=== PATIENT | female | born 1955 | race Hispanic/Latino ===

== ENCOUNTER 2019-04-26 13:07 | Observation (INO) | payer OTHER ==
[2019-04-26] MEDS ORDERED: ATIVAN IV PRN ×2 (14:27)
[2019-04-26] MEDS ORDERED: NACL 0.9% 1000 ML 1,000 ML IV ONE ×2 (14:27→15:40)
[2019-04-26] MEDS ORDERED: ZOFRAN IV ONE (14:28)
--- NOTE | 2019-04-26 14:29 | Emergency Department Report ---
<BRENDAN SALGADO - Last Filed: 04/27/19 00:43> ED General Adult HPI - General Chief complaint: Nausea/Vomiting/Diarrhea Stated complaint: WITHRAWLS Time Seen by Provider: 04/26/19 14:06 - Related Data Home Medications Medication Instructions Recorded Confirmed Last Taken Folic Acid [Folvite] 1 mg PO QDAY 04/26/19 04/26/19 Unknown Losartan [Cozaar] 50 mg PO QDAY 04/26/19 04/26/19 Unknown Mirtazapine [Remeron 15mg TAB] 15 mg PO QHS 04/26/19 04/26/19 Unknown Multivit-Min/Iron/Folic Acid/K 1 each PO DAILY 04/26/19 04/26/19 Unknown [Adults Multivitamin Tablet] Oxazepam [Serax] 15 mg PO BID 04/26/19 04/26/19 Unknown QUEtiapine [SEROquel] 100 mg PO QHS 04/26/19 04/26/19 Unknown Sertraline [Zoloft] 25 mg PO QDAY 04/26/19 04/26/19 Unknown Thiamine [Vitamin B-1] 100 mg PO QDAY 04/26/19 04/26/19 Unknown amLODIPine [Norvasc] 10 mg PO DAILY 04/26/19 04/26/19 Unknown lamoTRIgine [LaMICtal] 25 mg PO QDAY 04/26/19 04/26/19 Unknown Allergies Allergy/AdvReac Type Severity Reaction Status Date / Time ketorolac [From Toradol] AdvReac Unknown Verified 04/26/19 22:42 morphine AdvReac Unknown Verified 04/26/19 22:42 ED Past Medical Hx - Medications Home Medications: Home Medications Medication Instructions Recorded Confirmed Last Taken Type Folic Acid [Folvite] 1 mg PO QDAY 04/26/19 04/26/19 Unknown History Losartan [Cozaar] 50 mg PO QDAY 04/26/19 04/26/19 Unknown History Mirtazapine [Remeron 15mg TAB] 15 mg PO QHS 04/26/19 04/26/19 Unknown History Multivit-Min/Iron/Folic Acid/K 1 each PO DAILY 04/26/19 04/26/19 Unknown History [Adults Multivitamin Tablet] Oxazepam [Serax] 15 mg PO BID 04/26/19 04/26/19 Unknown History QUEtiapine [SEROquel] 100 mg PO QHS 04/26/19 04/26/19 Unknown History Sertraline [Zoloft] 25 mg PO QDAY 04/26/19 04/26/19 Unknown History Thiamine [Vitamin B-1] 100 mg PO QDAY 04/26/19 04/26/19 Unknown History amLODIPine [Norvasc] 10 mg PO DAILY 04/26/19 04/26/19 Unknown History lamoTRIgine [LaMICtal] 25 mg PO QDAY 04/26/19 04/26/19 Unknown History ED Medical Decision Making - Lab Data Result diagrams: 04/26/19 14:58 04/26/19 14:58 - Medical Decision Making Pt received in sign-out from Dr Robertson. Pt states she has had N/V/D for several days. Reports body aches as well. Also sustained a fall a few days a go, has bruising to face. CT Head is negative. CT Abd/ Pelvis negative for any acute pathology. CXR is negative. Pt has elevated WBCs at 15, normal lactic acide, normal temp. Pt hypokalemic at 3.0. Potassium has been replaced. Pt received 2L bolus normal saline in addition to banana bag. Pt had persistent tachycardia into the 110s. EKG showed sinus tachycardia w/ premature beats, no ST elevations, prolonged QT. Due to this tachycardia and a few readings of hypoxia, CTA was obtained to rule out PE. CTA Chest negative for PE. Pt does report that she is a smoker. RN states pt's O2 drops while asleep, so likely sleep apnea with COPD. Pt will be admitted to hospitalist for further ma nagement. ED Disposition Clinical Impression: Gastroenteritis, Hypokalemia, Dehydration Disposition: DC-09 OP ADMIT IP TO THIS HOSP Is pt being admited?: Yes Condition: Stable Time of Disposition: 20:25 <RAMOS ROBERTSON - Last Filed: 04/27/19 06:12> ED General Adult HPI - General Source: patient, EMS (EMS notes not available at time of chart dictation), RN notes reviewed, old records reviewed Mode of arrival: Ambulatory Limitations: Other (patient is a poor historian.) - History of Present Illness Initial comments: This is a 63-year-old female. She reportedly has a history of bipolar disorder. The patient is currently on a 1013 for suspected overdose. The patient is sent to the ER by a local psychiatric facility for evaluation. Apparently, she was a recent overdose of medication, also has a history of depression, anxiety, bipolar, hypertension, question alcohol abuse, and chronic diarrhea. The patient presents to the ER with a complaint of total body pain, weakness, malaise, fatigue, reported chronic diarrhea. She thinks that she fell on her head for 5 days ago. She is not sure about her tetanus vaccination status. She denies focal extremity weakness, numbness. She denies urinary symptoms, although she endorses that her urine is "dark." She states that she is not homicidal or suicidal. She makes no complaint of intentional overdose. She is not sure if she has started any new medicines. As per includes documentation, patient is reportedly allergic to morphine and tramadol. -: Gradual Location: left, right, upper extremity, lower extremity Quality: aching Consistency: constant Improves with: none Worsens with: none ED Review of Systems ROS: Stated complaint: WITHRAWLS Other details as noted in HPI Constitutional: malaise, weakness Eyes: denies: eye discharge ENT: denies: epistaxis Respiratory: denies: cough Cardiovascular: denies: syncope Gastrointestinal: diarrhea Genitourinary: other Musculoskeletal: arthralgia, myalgia Skin: rash, lesions Neurological: weakness Psychiatric: anxiety. denies: homicidal thoughts, suicidal thoughts ED Past Medical Hx - Past Medical History Hx Hypertension: Yes Hx Seizures: Yes Hx Psychiatric Treatment: Yes (bipolar) - Surgical History Additional Surgical History: hysterectomy, cyst to kidney removed, C4-C5 - Social History Smoking Status: Former Smoker Substance Use Type: Alcohol ED Physical Exam - General Limitations: Other (poor historian, somewhat disorganized) General appearance: alert, anxious - Head Head exam: Present: normocephalic, other (facial abrasions and infraorbital ecchymoses noted) - Eye Eye exam: Present: normal appearance, EOMI, other (visual acuity intact to finger counting and color perception at close distance). Absent: nystagmus - ENT ENT exam: Present: mucous membranes dry, normal external ear exam - Neck Neck exam: Present: normal inspection, full ROM. Absent: tenderness, meningismus - Respiratory Respiratory exam: Present: normal lung sounds bilaterally. Absent: respiratory distress - Cardiovascular Cardiovascular Exam: Present: normal rhythm, tachycardia, normal heart sounds. Absent: systolic murmur, diastolic murmur, rubs, gallop - GI/Abdominal GI/Abdominal exam: Present: soft. Absent: distended, tenderness, guarding, rebound, rigid, pulsatile mass - Extremities Exam Extremities exam: Present: full ROM, other (2+ pulses noted in the bilateral upper, lower extremities. There is no long bony tenderness. The pelvis is stable. Muscular compartments are soft. There is no redness, pus, streaking or crepitus noted.). Absent: normal inspection (numerous ecchymosis and abrasions noted, in various stages of healing), pedal edema, joint swelling, calf tenderness - Back Exam Back exam: Absent: tenderness, CVA tenderness (R), CVA tenderness (L), paraspinal tenderness, vertebral tenderness - Neurological Exam Neurological exam: Present: alert, oriented X3, other (Extraocular movements are intact bilaterally. There is no facial droop. The tongue is midline. Patient speaking in full complete sentences. There is no dysphonia. Hearing is grossly intact bilaterally. Shoulder shrug is intact bilaterally. 5/5 strength bilateral upper, lower extremities. Sensation is intact to light touch bilateral upper, lower extremities.). Absent: motor sensory deficit - Psychiatric Psychiatric exam: Present: anxious - Skin Skin exam: Present: warm, intact, normal color, abrasion, ecchymosis. Absent: rash ED Course Vital Signs 04/26/19 04/26/19 04/26/19 13:22 13:30 13:36 Temperature 98.1 F Pulse Rate 110 H 128 H Respiratory 15 18 Rate Blood Pressure 97/59 97/59 97/59 O2 Sat by Pulse 96 95 Oximetry 04/26/19 04/26/19 04/26/19 13:46 14:00 14:16 Temperature Pulse Rate 126 H 122 H 117 H Respiratory 16 18 20 Rate Blood Pressure 96/68 90/57 102/66 O2 Sat by Pulse 94 97 Oximetry 04/26/19 04/26/19 04/26/19 14:30 14:46 15:00 Temperature Pulse Rate 150 H 120 H 133 H Respiratory 13 17 10 L Rate Blood Pressure 106/75 109/59 109/59 O2 Sat by Pulse 99 97 Oximetry 04/26/19 04/26/19 04/26/19 15:16 15:30 15:46 Temperature Pulse Rate 120 H 121 H 103 H Respiratory 16 15 20 Rate Blood Pressure 109/59 119/72 119/72 O2 Sat by Pulse 97 96 95 Oximetry 04/26/19 04/26/19 04/26/19 16:00 16:16 19:00 Temperature Pulse Rate 110 H 116 H 101 H Respiratory 13 22 24 Rate Blood Pressure 136/77 117/69 119/74 O2 Sat by Pulse 98 92 Oximetry 04/26/19 04/26/19 04/26/19 19:30 19:36 20:00 Temperature Pulse Rate 105 H 109 H Respiratory 28 H 16 14 Rate Blood Pressure 131/77 139/108 O2 Sat by Pulse 89 97 99 Oximetry 04/26/19 04/26/19 04/26/19 20:30 21:20 21:31 Temperature Pulse Rate 112 H 123 H Respiratory 13 15 Rate Blood Pressure 122/81 128/74 113/48 O2 Sat by Pulse 100 96 93 Oximetry 04/26/19 04/26/19 04/26/19 22:01 22:31 23:00 Temperature Pulse Rate 125 H 105 H 149 H Respiratory 10 L 12 10 L Rate Blood Pressure 115/70 117/66 119/78 O2 Sat by Pulse 93 99 94 Oximetry 04/26/19 04/27/19 04/27/19 23:30 00:30 01:00 Temperature Pulse Rate 161 H 110 H Respiratory 19 13 21 Rate Blood Pressure 126/82 113/72 111/72 O2 Sat by Pulse 96 94 93 Oximetry - Reevaluation(s) Reevaluation #1: 04/26/19 15:07 Differential diagnosis, including but not limited to: Colitis, enteritis, alcohol dependence, alcohol withdrawal, dehydration, pneumonia, urinary tract infection, intracranial injury, dehydration Assessment and plan: 63-year-old female with a complaint of total body pain, malaise and weakness. She is afebrile and tachycardic. She is sober at this time. There is no midline cervical spine tenderness at this time. The patient has a nonfocal motor examination, and she is able to cooperate with her history and physical. We will check basic laboratory studies, urinalysis, EKG, x-ray of the chest, CT scan of the brain, CT scan abdomen pelvis, and given a tetanus vaccination. We will reassess after data points have resulted. Reevaluation #2: 04/26/19 15:39 Care will be transferred to the oncoming ER physician, Dr. Salgado, to follow-up on laboratory studies, repeat vital signs, and CT scan of the brain, abdomen/p robyn. Patient may require additional doses of IV fluids, and benzodiazepines to control symptoms. ED Medical Decision Making - Lab Data Result diagrams: 04/26/19 14:58 04/26/19 14:58 Vital Signs 04/26/19 13:36 Temperature 98.1 F Pulse Rate 128 H Respiratory 18 Rate Blood Pressure 97/59 O2 Sat by Pulse 95 Oximetry Lab Results 04/26/19 Range/Units 14:58 WBC 15.7 H (4.5-11.0) K/mm3 RBC 4.69 (3.65-5.03) M/mm3 Hgb 15.2 H (10.1-14.3) gm/dl Hct 44.3 H (30.3-42.9) % MCV 94 (79-97) fl MCH 33 H (28-32) pg MCHC 35 H (30-34) % RDW 19.0 H (13.2-15.2) % Lymph % (Auto) 23.0 (13.4-35.0) % [place] % (Auto) 8.0 H (0.0-7.3) % Eos % (Auto) 0.2 (0.0-4.3) % Baso % (Auto) 1.0 (0.0-1.8) % Lymph # 3.6 (1.2-5.4) K/mm3 [place] # 1.2 H (0.0-0.8) K/mm3 Eos # 0.0 (0.0-0.4) K/mm3 Baso # 0.2 H (0.0-0.1) K/mm3 Seg Neutrophils % 67.8 (40.0-70.0) % Seg Neutrophils # 10.7 H (1.8-7.7) K/mm3 - EKG Data -: EKG Interpreted by Ks - EKG Data When compared to previous EKG there are: previous EKG unavailable 04/26/19 15:09 There is no prior EKG available for comparison. The EKG shows a sinus tachy cardia, 160 bpm, normal axis, QTC prolonged, motion artifact, poor progression, the EKG is abnormal, there is no prior for comparison, the EKG is not consistent with ST elevation myocardial infarction. - Radiology Data Radiology results: image reviewed interpreted by me: X-ray of the chest is negative for acute disease. Critical care attestation.: If time is entered above; I have spent that time in minutes in the direct care of this critically ill patient, excluding procedure time. ED Disposition Is pt being admited?: Yes
[2019-04-26] MEDS ORDERED: ATIVAN IV STA (14:38)
[2019-04-26 15:07] LABS: Basophils # (Auto) 0.2 K/mm3 (0.0-0.1); Eosinophils % (Auto) 0.2 % (0.0-4.3); Hematocrit 44.3 % (30.3-42.9); Hemoglobin 15.2 gm/dl (10.1-14.3); Lymphocytes # (Auto) 3.6 K/mm3 (1.2-5.4); Mean Corpuscular HGB Conc 35 % (30-34); Mean Corpuscular Volume 94 fl (79-97); Monocytes # (Auto) 1.2 K/mm3 (0.0-0.8); Red Blood Count 4.69 M/mm3 (3.65-5.03)
[2019-04-26] MEDS ORDERED: BOOSTRIX IM ONE (15:07)
[2019-04-26 15:19] LABS: Platelet Count 435 K/mm3 (140-440)
[2019-04-26 15:24] LABS: Albumin 3.9 g/dL (3.9-5); Calcium 9.7 mg/dL (8.4-10.2)
[2019-04-26] MEDS ORDERED: VITAMIN B-1 100 MG, FOLVITE 1 MG, INFUVITE 10 ML in NACL 0.9% 1000 ML 1,000 ML IV ONE (15:27)
[2019-04-26] MEDS ORDERED: K-DUR PO ONE (15:29)
[2019-04-26 15:43] LABS: INR 1.06 (0.87-1.13)
[2019-04-26 15:44] LABS: Partial Thromboplastin Time 23.2 Sec. (24.2-36.6)
--- NOTE | 2019-04-26 15:49 | XRay Report ---
CHEST 1 VIEW INDICATION / CLINICAL INFORMATION: Chest pain with dyspnea. COMPARISON: None available. FINDINGS: SUPPORT DEVICES: None. HEART / MEDIASTINUM: No significant abnormality. LUNGS / PLEURA: No significant pulmonary or pleural abnormality. No pneumothorax. ADDITIONAL FINDINGS: No significant additional findings. IMPRESSION: 1. No acute findings. Signer Name: Sunil Ray MD Signed: 04/26/2019 3:45 PM Workstation Name: [id number]
[2019-04-26] MEDS ORDERED: REGLAN IV ONE (16:01)
[2019-04-26 16:39] LABS: Bilirubin,Urine NEG (Negative); Blood,Urine NEG (Negative); Color,Urine Amber (Yellow); Protein,Urine <15 mg/dL mg/dL (Negative); Urobilinogen,Urine < 2.0 mg/dL (<2.0)
[2019-04-26 17:02] LABS: Amphetamine Screen,Urine PRESUMPTIVE NEGATIVE; Cannabinoid Screen,Urine PRESUMPTIVE NEGATIVE; Cocaine Screen,Urine PRESUMPTIVE NEGATIVE; Methadone Screen,Urine PRESUMPTIVE NEGATIVE; Opiate Screen,Urine PRESUMPTIVE NEGATIVE
[2019-04-26 17:14] LABS: Benzodiazepines Screen,Urine PRESUMPTIVE POSITIVE
--- NOTE | 2019-04-26 17:14 | Cat Scan Report ---
CT head/brain wo con INDICATION: Fall, facial abrasion. TECHNIQUE: Routine CT head without contrast. All CT scans at this location are performed using CT dose reduction for ALARA by means of automated exposure control. COMPARISON: None. FINDINGS: BRAIN / INTRACRANIAL CONTENTS: No acute hemorrhage, brain edema, mass effect, or hydrocephalus. Naina l linder-white differentiation. No chronic infarct or focal atrophy. Normal brain volume and ventricula r/sulcal size for age. CALVARIUM/SKULL BASE/CRANIOCERVICAL JUNCTION: No evidence of fracture. ORBITS: No significant abnormality of visualized orbits. SINUSES / MASTOIDS: No significant abnormality of visualized sinuses and mastoid air cells. ADDITIONAL FINDINGS: None. IMPRESSION: 1. No acute post-traumatic intracranial abnormality. Signer Name: Mac Duran MD Signed: 04/26/2019 5:10 PM Workstation Name: [id number]
--- NOTE | 2019-04-26 17:36 | Cat Scan Report ---
CT ABDOMEN AND PELVIS WITHOUT CONTRAST INDICATION: hx of fall facial abrasion n/v weak. TECHNIQUE: Axial CT images were obtained through the abdomen and pelvis without IV contrast. All CT scans at [facility] are performed using CT dose reduction for ALARA by means of automated exposure control. COMPARISON: None available. FINDINGS: LOWER CHEST: No significant abnormality. LIVER: 2.2 cm indeterminate hypodense lesion within the caudate lobe of liver. 1.1 cm hypodense lesio n within the lateral hepatic segment. No perihepatic fluid. Caudate lobe is also somewhat nodular in morphology which may be seen with mild early cirrhosis. GALLBLADDER: No significant abnormality. BILE DUCTS: No significant abnormality. PANCREAS: No significant abnormality. SPLEEN: No significant abnormality. ADRENALS: No significant abnormality. RIGHT KIDNEY and URETER: No significant abnormality. LEFT KIDNEY and URETER: No significant abnormality. STOMACH and SMALL BOWEL: No significant abnormality. COLON: No significant abnormality. APPENDIX: Normal PERITONEUM: No free fluid. No free air. No fluid collection. LYMPH NODES: No significant adenopathy. AORTA and ARTERIES: Extensive vascular calcifications within the abdominal aorta and both iliac arter ies IVC and VEINS: No significant abnormality. URINARY BLADDER: No significant abnormality. REPRODUCTIVE ORGANS: Uterus surgically absent ADDITIONAL FINDINGS: None. SKELETAL SYSTEM: Osteopenia with old compression fracture of L1 superior endplate with 50% loss of ve rtebral body height IMPRESSION: 1. 2 indeterminate hypodense liver lesions with probable mild cirrhosis of liver. Recommend CT abdome n with contrast with arterial and portal venous phase images to confirm presence or absence of julianne ioma or focal fatty infiltration. The lesions do not have the appearance of lacerations since there i s no perihepatic fluid or other adjacent rib fracture or traumatic injury. 2. Old L1 compression fracture Signer Name: Alphonse Anaya MD Signed: 04/26/2019 5:31 PM Workstation Name: [id number]
[2019-04-26] MEDS: KCL 10MEQ/100ML 10 MEQ/100 ML BAG IV SCH ×3 (18:13→21:46)
--- NOTE | 2019-04-26 21:43 | Cat Scan Report ---
CTA CHEST WITH IV CONTRAST INDICATION: tachycardic, hypoxic. TECHNIQUE: Axial CT images were obtained through the chest after injection of 100 mL IV contrast. 3 plane MIP re constructions were produced. All CT scans at this location are performed using CT dose reduction for ALARA by means of automated exposure control. COMPARISON: None available. FINDINGS: PULMONARY ARTERIES: No pulmonary emboli. AORTA AND ARTERIES: No acute abnormality. MEDIASTINUM: No mass, lymphadenopathy or other significant abnormality. The heart is normal in size w ithout a pericardial effusion. The trachea and main bronchi are patent and normal in caliber. LUNGS: No suspicious consolidation, nodule or mass. No pneumothorax or pleural effusion. ADDITIONAL FINDINGS: None. UPPER ABDOMEN: No acute findings. BONES: No significant osseous abnormality. IMPRESSION: 1. No CT evidence for pulmonary embolism. 2. No acute findings. Signer Name: Sunil Ray MD Signed: 04/26/2019 9:39 PM Workstation Name: [id number]
[2019-04-26] MEDS ORDERED: KCL 10MEQ/100ML 10 MEQ/100 ML BAG IV ONE (22:36)
[2019-04-27] MEDS ORDERED: KCL 10MEQ/100ML 10 MEQ/100 ML BAG IV ONE (00:16)
[2019-04-27] MEDS ORDERED: ATIVAN ONE (00:25)
[2019-04-27] MEDS: ATIVAN IV PRN ×5 (00:32→23:06)
[2019-04-27] MEDS: ZOFRAN IV PRN ×3 (03:27→23:06)
--- NOTE | 2019-04-27 05:12 | History and Physical Report ---
CHIEF COMPLAINT: Nausea, vomiting and diarrhea. Other complaint includes weakness. HISTORY OF PRESENT ILLNESS: The patient is a 63-year-old female transferred from a nearby psychiatric facility because of complaint of weakness, nausea and vomiting. The patient was sent to the psych facility because of suspected drug overdose and also because of history of bipolar disorder, depression and anxiety and the patient was sent over after she started having nausea, vomiting with diarrhea. The patient also states she fell down about 5 days ago and hit her head on the ground. There was no history of chest pain, shortness of breath, fever or chills. PAST MEDICAL HISTORY: Pertinent for hypertension, seizure disorder, bipolar disorder, anxiety disorder, depression. PAST SURGICAL HISTORY: Hysterectomy, cyst removal from the kidney. FAMILY HISTORY: Noncontributory. SOCIAL HISTORY: The patient drinks alcohol. The patient is a former cigarette smoker, but does not smoke currently. MEDICATIONS: The patient is on the following medications: 1. Folic acid 1 mg by mouth daily. 2. Losartan 50 mg by mouth daily. 3. Temazepam 15 mg by mouth at bedtime. 4. Adult multivitamin tablets 1 by mouth daily. 5. Oxazepam or Serax 15 mg by mouth twice daily. 6. Seroquel 100 mg by mouth at bedtime. 7. Zoloft 25 mg by mouth daily. 8. Vitamin B1 100 mg by mouth daily. 9. Amlodipine 10 mg by mouth daily. 10. Lamotrigine 25 mg by mouth daily. ALLERGIES: THE PATIENT IS ALLERGIC TO KETOROLAC, MORPHINE. REVIEW OF SYSTEMS: CONSTITUTIONAL: There is no fever, no chills, no diaphoresis. HEENT: There is no headache or sore throat. CARDIOVASCULAR SYSTEM: There is no chest pain or orthopnea. RESPIRATORY SYSTEM: There is no shortness of breath or cough. GASTROINTESTINAL SYSTEM: Nausea, vomiting and diarrhea present. Abdominal discomfort noted. No constipation. NEUROLOGICAL SYSTEM: There is no numbness, no dizziness, no altered mental status. MUSCULOSKELETAL SYSTEM: There is no joint pain or swelling. DERMATOLOGICAL SYSTEM: There is no skin rash or itching. GENITOURINARY SYSTEM: There is no dysuria, hematuria, or flank pain. Rest of system review is normal. PHYSICAL EXAMINATION: GENERAL: At the time of exam, the patient was found to be alert, oriented to person, place and not in acute distress. VITAL SIGNS: At the initial time of presentation showed temperature of 98.1 degrees Fahrenheit, pulse of 128, respirations 18, blood pressure 97/59, O2 sat of 95% on room air. HEENT: Showed pupils to be equal, round, reactive to light and accommodating. Extraocular muscles are intact. NECK: Supple with no JVD or carotid bruit. CARDIOVASCULAR SYSTEM: Showed normal first and second heart sounds with no gallops or murmurs. RESPIRATORY SYSTEM: Showed good air entry on both sides of the lungs with no abnormal breath sounds. GASTROINTESTINAL SYSTEM: Show abdomen to be full, soft, nontender with no organomegaly or rigidity. NEUROLOGIC: Shows no focal deficit. MUSCULOSKELETAL SYSTEM: Show no joint swelling or tenderness. DERMATOLOGICAL SKIN: Showed no skin rash. GENITOURINARY SYSTEM: Showed no costovertebral angle tenderness. PERTINENT LABORATORY AND IMAGING STUDIES: The patient had chest x-ray done that shows no acute cardiopulmonary lesion and the patient had CT of the head without contrast done that shows no acute posttraumatic intracranial abnormality. The patient has CT of the abdomen and pelvis done and this shows indeterminate hypodense liver lesions with possible mild cirrhosis of the liver and the radiologist recommended CT of the abdomen with contrast with arterial and portal venous phase images to confirm the presence or absence of hemangioma of focal fatty infiltration. There is also finding of an old first lumbar compression fracture. The patient also has CT angiogram of the chest done and this shows no evidence of pulmonary embolism and no acute findings. Lab results, the patient has CBC done with elevated white count of 15,700 and elevated hemoglobin of 15.2 with high hematocrit of 44.3 and normal platelet count, with unremarkable CBC differential. The patient's coagulation studies came back normal. The patient's chemistry show low sodium level of 135 with low chloride level of 88.1 and low potassium level of 3.0. The patient's BUN level was elevated with a value of 24 with normal creatinine level and low estimated GFR of 50. The patient's lactic acid level came back normal and rest of the chemistry was unremarkable. The patient's urinalysis show elevated urine WBC of 11 with normal urine, leukocyte esterase, negative urine nitrite and no bacteria seen. The patient's toxicology screen is positive for benzodiazepines and the patient's alcohol level was unremarkable. DIAGNOSES: 1. Acute gastroenteritis. 2. Hypokalemia. 3. Dehydration. 4. Possible liver cirrhosis. PLAN OF CARE: 1. The patient will be admitted to medical floor. 2. The patient will continue the CIWA protocol put in by the emergency room. 3. The patient will be on IV normal saline running at 125 mL an hour. 4. The patient will be on IV Zofran 4 mg every 8 hours as needed for nausea and vomiting and will be on Tylenol 650 mg by mouth every 4 hours for fever and headache. 5. The patient will have IV potassium chloride 10 mEq in 100 mL of normal saline over one hour and will have basic metabolic panel checked in the morning after potassium replacement. 6. The patient will continue the IV normal saline with thiamine, multivitamin, folic acid, magnesium sulfate as banana bag that was started in the emergency room and will continue normal saline subsequently when the banana bag is done. 7. The patient will have gastroenterology consult with Paty aRi because of possible liver cirrhosis found on CAT scan of the abdomen and pelvis. 8. The patient's home medications will be started as shown in the medication reconciliation section. JOB# [id number] OCN/NTS
[2019-04-27] MEDS: NACL 0.9% 1000 ML 1,000 ML IV SCH ×2 (05:18→11:47)
[2019-04-27 09:28] LABS: BUN/Creatinine Ratio 17; Blood Urea Nitrogen 15 mg/dL (7-17); Calcium 8.6 mg/dL (8.4-10.2); Hemolysis Index 1
[2019-04-27] MEDS: NORVASC PO SCH (09:56)
[2019-04-27] MEDS: THERAGRAN-M Tab PO SCH (09:56)
[2019-04-27] MEDS: FOLVITE PO SCH (09:56)
[2019-04-27] MEDS: COZAAR PO SCH (09:57)
[2019-04-27] MEDS: HEPARIN SUB-Q SCH ×2 (09:57→22:06)
[2019-04-27] MEDS ORDERED: [UNRECOGNIZED DRUG - OTHER] PO SCH (10:00)
[2019-04-27] MEDS ORDERED: MULTIVIT MIN PO SCH (10:00)
[2019-04-27] MEDS: ZOLOFT PO SCH (10:00)
[2019-04-27] MEDS: LaMICtal PO SCH (10:00)
[2019-04-27] MEDS ORDERED: FOLIC ACID PO SCH (10:00)
[2019-04-27] MEDS ORDERED: IRON PO SCH (10:00)
--- NOTE | 2019-04-27 13:19 | Progress Note ---
Assessment and Plan Acute gastroenteritis Hypokalemia Dehydration due to nausea and vomiting hepatic nodule with new diagnosis of hepatic cirrhosis Suspected drug overdose Alcohol abuse with possible withdrawal - Admitted to [facility] - Started on clear liquid diet, GI consulted, cont PPI/carafate/reglan, IV fluid, - consult psych, DVt Px - monitor BMP, replete electrolytes as needed - psych consult Brief History: 63-year-old white female with a history of hypertension, seizure disorder, transferred from a nearby psychiatric facility because of complaints of weakness nausea and vomiting. Patient was admitted to the psych facility because of suspected drug overdose, bipolar disorder with depression or anxiety. Radiological data: Head CT, no acute process Chest x-ray, no infiltrates Chest CTA, NO PE Abdomen pelvis CT: 1. 2 indeterminate hypodense liver lesions with probable mild cirrhosis of li reji. Recommend CT abdomen with contrast with arterial and portal venous phase images to confirm presence or absence of hemangioma or focal fatty infiltration. The lesions do not have the appearance of lacerations since there is no perihepatic fluid or other adjacent rib fracture or traumatic injury. 2. Old L1 compression fracture Hospitalist Physical exam: GENERAL: elderly WF lying on bed appeared to be in mild discomfort. HEENT: Normocephalic. Atraumatic. No conjunctival congestion or icterus. Patient has moist mucous membranes. NECK: Supple. Trachea midline. CHEST/LUNGS: Clear to auscultated bilaterally, breathing nonlabored. No wheezes crackles or rhonchi. HEART/CARDIOVASCULAR: Regular in rate and rhythm. S1 and S2 positive. ABDOMEN: Abdomen is soft, nontender. Patient has normal bowel sounds. SKIN: There is no rash. Warm and dry. NEURO: No focal motor deficit. Follows command. MUSCULOSKELETAL: No joint effusion or tenderness. EXTRIMITY: No edema, no cyanosis or clubbing. PSYCH: Cooperative. Subjective Date of service: 04/27/19 Interval history: Patient seen and examined c/o N/V, unable to tolerate po Objective - Constitutional Vitals: Vital Signs - 12hr 04/27/19 04/27/19 04/27/19 01:20 05:22 05:47 Temperature 99.8 F H 99.0 F Pulse Rate 102 H 92 H Respiratory 18 16 Rate Blood Pressure 131/93 120/74 Blood Pressure 128/58 [Left] O2 Sat by Pulse 94 94 Oximetry - Labs CBC & Chem 7: 04/29/19 05:30 04/29/19 05:30 Labs: Abnormal lab results 04/26/19 04/26/19 04/26/19 Range/Units 14:58 14:58 14:58 WBC 15.7 H (4.5-11.0) K/mm3 Hgb 15.2 H (10.1-14.3) gm/dl Hct 44.3 H (30.3-42.9) % MCH 33 H (28-32) pg MCHC 35 H (30-34) % RDW 19.0 H (13.2-15.2) % [place] % (Auto) 8.0 H (0.0-7.3) % [place] # 1.2 H (0.0-0.8) K/mm3 Baso # 0.2 H (0.0-0.1) K/mm3 Seg Neutrophils # 10.7 H (1.8-7.7) K/mm3 APTT 23.2 L (24.2-36.6) Sec. Sodium 135 L (137-145) mmol/L Potassium 3.0 L (3.6-5.0) mmol/L Chloride 88.1 L (98-107) mmol/L BUN 24 H (7-17) mg/dL Glucose 105 H (65-100) mg/dL Alkaline Phosphatase 144 H (35-129) units/L Total Protein 8.4 H (6.3-8.2) g/dL Urine WBC (Auto) (0.0-6.0) /HPF Salicylates (2.8-20.0) mg/dL Acetaminophen (10.0-30.0) ug/mL 04/26/19 04/26/19 04/26/19 Range/Units 14:58 14:58 15:46 WBC (4.5-11.0) K/mm3 Hgb (10.1-14.3) gm/dl Hct (30.3-42.9) % MCH (28-32) pg MCHC (30-34) % RDW (13.2-15.2) % [place] % (Auto) (0.0-7.3) % [place] # (0.0-0.8) K/mm3 Baso # (0.0-0.1) K/mm3 Seg Neutrophils # (1.8-7.7) K/mm3 APTT (24.2-36.6) Sec. Sodium (137-145) mmol/L Potassium (3.6-5.0) mmol/L Chloride (98-107) mmol/L BUN (7-17) mg/dL Glucose (65-100) mg/dL Alkaline Phosphatase (35-129) units/L Total Protein (6.3-8.2) g/dL Urine WBC (Auto) 11.0 H (0.0-6.0) /HPF Salicylates < 0.3 L (2.8-20.0) mg/dL Acetaminophen < 5.0 L (10.0-30.0) ug/mL 04/27/19 Range/Units 08:29 WBC (4.5-11.0) K/mm3 Hgb (10.1-14.3) gm/dl Hct (30.3-42.9) % MCH (28-32) pg MCHC (30-34) % RDW (13.2-15.2) % [place] % (Auto) (0.0-7.3) % [place] # (0.0-0.8) K/mm3 Baso # (0.0-0.1) K/mm3 Seg Neutrophils # (1.8-7.7) K/mm3 APTT (24.2-36.6) Sec. Sodium (137-145) mmol/L Potassium 3.5 L (3.6-5.0) mmol/L Chloride 96.9 L (98-107) mmol/L BUN (7-17) mg/dL Glucose (65-100) mg/dL Alkaline Phosphatase (35-129) units/L Total Protein (6.3-8.2) g/dL Urine WBC (Auto) (0.0-6.0) /HPF Salicylates (2.8-20.0) mg/dL Acetaminophen (10.0-30.0) ug/mL
[2019-04-27] MEDS ORDERED: HALDOL IM PRN (18:13)
--- NOTE | 2019-04-27 19:07 | Gastroenterology Consultation ---
History of Present Illness - Reason for Consult Consult date: 04/27/19 cirrhosis Requesting physician: AKIN GR - History of Present Illness This is a 63 yo female with pmh of HTN and seizure transferred from psychiatric facility due to nausea/vomiting. Patient was admitted at psych facility because of suspected drug overdose, bipolar disorder. patient reports having nausea/vomiting for the past 4-5 days. No blood in the emesis. No abdominal pain but sick feeling in her stomach. CT a/p without contrast showed small liver lesion and cirrhosis. Patient denies any prior h/o liver disease but states she used to drink a lot of alcohol regularly but quit 3 weeks ago. Family hx of cirrhosis in her mother and brother. Medication list reviewed. Past History Past Medical History: hypertension Past Surgical History: No surgical history Social history: alcohol abuse Family history: other (liver disease) Medications and Allergies Allergies Allergy/AdvReac Type Severity Reaction Status Date / Time ketorolac [From Toradol] AdvReac Unknown Verified 04/26/19 22:42 morphine AdvReac Unknown Verified 04/26/19 22:42 Home Medications Medication Instructions Recorded Confirmed Last Taken Type Folic Acid [Folvite] 1 mg PO QDAY 04/26/19 04/26/19 Unknown History Losartan [Cozaar] 50 mg PO QDAY 04/26/19 04/26/19 Unknown History Mirtazapine [Remeron 15mg TAB] 15 mg PO QHS 04/26/19 04/26/19 Unknown History Multivit-Min/Iron/Folic Acid/K 1 each PO DAILY 04/26/19 04/26/19 Unknown History [Adults Multivitamin Tablet] Oxazepam [Serax] 15 mg PO BID 04/26/19 04/26/19 Unknown History QUEtiapine [SEROquel] 100 mg PO QHS 04/26/19 04/26/19 Unknown History Sertraline [Zoloft] 25 mg PO QDAY 04/26/19 04/26/19 Unknown History Thiamine [Vitamin B-1] 100 mg PO QDAY 04/26/19 04/26/19 Unknown History amLODIPine [Norvasc] 10 mg PO DAILY 04/26/19 04/26/19 Unknown History lamoTRIgine [LaMICtal] 25 mg PO QDAY 04/26/19 04/26/19 Unknown History Active Meds: Active Medications Amlodipine Besylate (Norvasc) 10 mg PO DAILY [facility] Last Admin: 04/27/19 09:56 Dose: 10 mg Documented by: Folic Acid (Folvite) 1 mg PO QDAY [facility] Last Admin: 04/27/19 09:56 Dose: 1 mg Documented by: Haloperidol Lactate (Haldol) 5 mg IM Q6H PRN PRN Reason: Agitation Heparin Sodium (Porcine) (Heparin) 5,000 unit SUB-Q Q12HR [facility] Last Admin: 04/27/19 09:57 Dose: 5,000 unit Documented by: Sodium Chloride (Nacl 0.9% 1000 Ml) 1,000 mls @ 125 mls/hr IV DIRECT [facility] Last Admin: 04/27/19 11:47 Dose: 125 mls/hr Documented by: Lamotrigine (Lamictal) 25 mg PO QDAY [facility] Last Admin: 04/27/19 10:00 Dose: 25 mg Documented by: Lorazepam (Ativan) 2 mg IV Q1HR PRN PRN Reason: CIWA-Ar 8-15 Last Admin: 04/27/19 18:38 Dose: 2 mg Documented by: Lorazepam (Ativan) 4 mg IV Q1HR PRN PRN Reason: CIWA-Ar 16-25 Lorazepam (Ativan) 4 mg IV Q15MIN PRN PRN Reason: CIWA-Ar >25 Losartan Potassium (Cozaar) 50 mg PO QDAY [facility] Last Admin: 04/27/19 09:57 Dose: 50 mg Documented by: Mirtazapine (Remeron) 15 mg PO QHS [facility] Multivitamins/Minerals (Theragran-M Tab) 1 each PO QDAY [facility] Last Admin: 04/27/19 09:56 Dose: 1 each Documented by: Ondansetron HCl (Zofran) 4 mg IV Q8H PRN PRN Reason: Nausea And Vomiting Last Admin: 04/27/19 11:45 Dose: 4 mg Documented by: Quetiapine Fumarate (Seroquel) 100 mg PO QHS [facility] Sertraline HCl (Zoloft) 25 mg PO QDAY [facility] Last Admin: 04/27/19 10:00 Dose: 25 mg Documented by: Review of Systems - Review of Systems All systems: negative Constitutional: fatigue Respiratory: cough Gastrointestinal: nausea, vomiting Psychiatric: anxiety Exam - Constitutional Vital Signs: Temp Pulse Resp BP Pulse Ox 99.0 F 92 H 16 120/74 94 04/27/19 05:47 04/27/19 05:47 04/27/19 05:47 04/27/19 05:47 04/27/19 05:47 General appearance: no acute distress - EENT Eyes: EOM intact ENT: hearing intact - Neck Neck: supple - Respiratory Respiratory effort: normal Respiratory: bilateral: CTA - Cardiovascular Rhythm: regular Heart Sounds: Present: S1 & S2 - Gastrointestinal General gastrointestinal: Present: soft, non-tender, non-distended, normal bowel sounds - Integumentary Integumentary: Present: clear, warm - Neurologic Neurological: alert and oriented x3 - Labs CBC & Chem 7: 04/26/19 14:58 04/27/19 08:29 Lab Results: Laboratory Results - last 24 hr 04/26/19 04/27/19 22:27 08:29 Sodium 138 Potassium 3.5 L Chloride 96.9 L Carbon Dioxide 28 Anion Gap 17 BUN 15 Creatinine 0.9 Estimated GFR > 60 BUN/Creatinine Ratio 17 Glucose 98 Lactic Acid 1.50 Calcium 8.6 - Imaging CT Scan: report reviewed Assessment and Plan 63-year-old white female with a history of hypertension, seizure disorder, transferred from a nearby psychiatric facility because of complaints of weakness nausea and vomiting. Patient was admitted to the psych facility because of suspected drug overdose, bipolar disorder with depression or anxiety. # Cirrhosis - new diagnosis. - likely 2/2 alcohol. - mild elevation in alk phos but otherwise normal AST/ALT. normal platelets and INR at 1 - CT with 2.2 cm hypodense lesion but indeterminate on noncontrast imaging. Rec: - check viral hepatitis panel. - may need repeat imaging with IV contrast for liver lesion (can be followed up as outpatient but may need as inpatient if unreliable follow up). - PPI and antiemetics. - psych consult. - monitor for signs of withdrawal. - Patient Problems (1) Gastroenteritis Current Visit: Yes Status: Acute
[2019-04-27] MEDS: REMERON PO SCH (22:05)
--- NOTE | 2019-04-28 00:14 | Event Note ---
Date: 04/28/19 pt was going to commode and apparently fell into bath tube. She was found sitting up in bath tub by sitter. Post fall assessment completed, no signs of heaf trauma noted. Will order CT head.
--- NOTE | 2019-04-28 01:52 | Cat Scan Report ---
CT HEAD WITHOUT CONTRAST INDICATION / CLINICAL INFORMATION: MAIN: s/p fall. AMS.. TECHNIQUE: All CT scans at this location are performed using CT dose reduction for ALARA by means of automated e xposure control. COMPARISON: Head CT 04/26/2019 FINDINGS: HEMORRHAGE: None. EXTRA-AXIAL SPACES: Normal in size and morphology for the patient's age. VENTRICULAR SYSTEM: Normal in size and morphology for the patient's age. CEREBRAL PARENCHYMA: No significant abnormality. No acute territorial infarct. MIDLINE SHIFT OR HERNIATION: None. CEREBELLUM / BRAINSTEM: No significant abnormality. ORBITS: Normal as visualized. SOFT TISSUES of HEAD: No significant abnormality. CALVARIUM: No significant abnormality. PARANASAL SINUSES / MASTOID AIR CELLS: Acute mildly displaced fractures of both lateral nasal bones, unchanged ADDITIONAL FINDINGS: None. IMPRESSION: 1. No acute intracranial abnormality. 2. Acute mildly displaced fractures of both lateral nasal bones, unchanged but not mentioned on previ ous study Signer Name: Alphonse Anaya MD Signed: 04/28/2019 1:48 AM Workstation Name: [email or web address]
[2019-04-28] MEDS: NORVASC PO SCH (09:44)
[2019-04-28] MEDS: THERAGRAN-M Tab PO SCH (09:44)
[2019-04-28] MEDS: FOLVITE PO SCH (09:44)
[2019-04-28] MEDS: HEPARIN SUB-Q SCH ×2 (09:45→22:37)
[2019-04-28] MEDS: LaMICtal PO SCH (09:45)
[2019-04-28] MEDS: ZOLOFT PO SCH (09:45)
[2019-04-28] MEDS: COZAAR PO SCH (09:45)
[2019-04-28] MEDS: VITAMIN B-1 PO SCH (11:00)
--- NOTE | 2019-04-28 11:53 | Progress Note ---
Assessment and Plan Acute gastroenteritis Hypokalemia Dehydration due to nausea and vomiting hepatic nodule with new diagnosis of hepatic cirrhosis Suspected drug overdose s/p fall - CT head negative - Admitted to [facility] -advance diet as tolerated, GI consulted - no plan for EGD - cont PPI/carafate/reglan, IV fluid, - consulted psych - follow recommendation, DVt Px - monitor BMP, replete electrolytes as needed - PT eval Brief History: 63-year-old white female with a history of hypertension, seizure disorder, transferred from a nearby psychiatric facility because of complaints of weakness nausea and vomiting. Patient was admitted to the psych facility because of suspected drug overdose, bipolar disorder with depression or anxiety. Radiological data: Head CT, no acute process Chest x-ray, no infiltrates Chest CTA, NO PE Abdomen pelvis CT: 1. 2 indeterminate hypodense liver lesions with probable mild cirrhosis of liver. Recommend CT abdomen with contrast with arterial and portal venous phase images to confirm presence or absence of hemangioma or focal fatty infiltration. The lesions do not have the appearance of lacerations since there is no perihepatic fluid or other adjacent rib fracture or traumatic injury. 2. Old L1 compression fracture Hospitalist Physical exam: GENERAL: elderly WF lying on bed appeared to be in no discomfort. HEENT: Normocephalic. Atraumatic. No conjunctival congestion or icterus. Patient has moist mucous membranes. NECK: Supple. Trachea midline. CHEST/LUNGS: Clear to auscultated bilaterally, breathing nonlabored. No wheezes crackles or rhonchi. HEART/CARDIOVASCULAR: Regular in rate and rhythm. S1 and S2 positive. ABDOMEN: Abdomen is soft, nontender. Patient has normal bowel sounds. SKIN: There is no rash. Warm and dry. NEURO: No focal motor deficit. Follows command. MUSCULOSKELETAL: No joint effusion or tenderness. EXTRIMITY: No edema, no cyanosis or clubbing. PSYCH: Cooperative. Subjective Date of service: 04/28/19 Interval history: Patient seen and examined N/V improved, had a fall last night advance diet started Objective - Constitutional Vitals: Vital Signs - 12hr 04/28/19 04/28/19 04/28/19 00:02 00:05 04:56 Temperature 99.5 F 98.1 F Pulse Rate 114 H 135 H Respiratory 16 20 Rate Blood Pressure 115/66 134/68 O2 Sat by Pulse 95 93 Oximetry 04/28/19 05:03 Temperature Pulse Rate 107 H Respiratory Rate Blood Pressure O2 Sat by Pulse Oximetry - Labs CBC & Chem 7: 04/29/19 05:30 04/29/19 05:30
[2019-04-28] MEDS ORDERED: NEXIUM 20 MG PO SCH (12:15)
[2019-04-28] MEDS: NON-FORMULARY PO SCH (12:36)
[2019-04-28] MEDS ORDERED: PROTONIX PO SCH (14:00)
--- NOTE | 2019-04-28 14:41 | Gastroenterology Progress Note ---
Assessment and Plan 63-year-old white female with a history of hypertension, seizure disorder, transferred from a nearby psychiatric facility because of complaints of weakness nausea and vomiting. Patient was admitted to the psych facility because of suspected drug overdose, bipolar disorder with depression or anxiety. # Cirrhosis - new diagnosis. - likely 2/2 alcohol. - mild elevation in alk phos but otherwise normal AST/ALT. normal platelets and INR at 1 - CT with 2.2 cm hypodense lesion but indeterminate on noncontrast imaging. - no new labs today although orders in place. (? patient refusal) Rec: - check viral hepatitis panel. ordered on 04/27/2019 - recommend repeat imaging with IV contrast for liver lesion (can be followed up as outpatient but may need as inpatient if unreliable follow up). ordered. - PPI and antiemetics. - psych consult. - monitor for signs of withdrawal. - Patient Problems (1) Gastroenteritis Current Visit: Yes Status: Acute Subjective Date of service: 04/28/19 Interval history: Patient keeping down liquids and no vomiting. Reports feeling better. Objective - Constitutional Vitals: Temp Pulse Resp BP Pulse Ox 97.4 F L 97 H 18 125/65 97 04/28/19 12:45 04/28/19 12:45 04/28/19 12:45 04/28/19 12:45 04/28/19 12:45 General appearance: no acute distress - EENT Eyes: EOM intact ENT: hearing intact - Neck Neck: supple - Respiratory Respiratory effort: normal Respiratory: bilateral: CTA - Cardiovascular Rhythm: regular Heart Sounds: Present: S1 & S2 - Gastrointestinal General gastrointestinal: Present: soft, non-tender, non-distended, normal bowel sounds - Integumentary Integumentary: Present: clear, warm - Labs CBC & Chem 7: 04/26/19 14:58 04/27/19 08:29
--- NOTE | 2019-04-28 19:29 | Cat Scan Report ---
Nondiagnostic study secondary to severe patient motion. Signer Name: Sunil Ray MD Signed: 04/28/2019 7:24 PM Workstation Name: [id number]
[2019-04-28] MEDS: SERAX PO SCH (22:23)
[2019-04-28] MEDS: REMERON PO SCH (22:36)
[2019-04-29 06:10] LABS: Hematocrit 35.2 % (30.3-42.9); Hemoglobin 11.9 gm/dl (10.1-14.3); Mean Corpuscular HGB Conc 34 % (30-34); Mean Corpuscular Volume 95 fl (79-97); Platelet Count 274 K/mm3 (140-440); Red Blood Count 3.71 M/mm3 (3.65-5.03); Red Cell Distribution Width 17.9 % (13.2-15.2)
[2019-04-29 06:25] LABS: INR 1.03 (0.87-1.13)
[2019-04-29 06:37] LABS: BUN/Creatinine Ratio 11; Blood Urea Nitrogen 8 mg/dL (7-17); Calcium 8.9 mg/dL (8.4-10.2); Hemolysis Index 0
[2019-04-29 06:50] LABS: Hepatitis C Virus Antibody Non-Reactive (NonReactive)
[2019-04-29 07:10] LABS: Hepatitis B Surface Antigen Non-Reactive (Negative)
[2019-04-29] MEDS: NON-FORMULARY PO SCH (09:53)
[2019-04-29] MEDS: VITAMIN B-1 PO SCH (09:54)
[2019-04-29] MEDS: LaMICtal PO SCH (09:54)
[2019-04-29] MEDS: COZAAR PO SCH (09:54)
[2019-04-29] MEDS: FOLVITE PO SCH (09:55)
[2019-04-29] MEDS: THERAGRAN-M Tab PO SCH (09:55)
[2019-04-29] MEDS: NORVASC PO SCH (09:55)
[2019-04-29] MEDS: ZOLOFT PO SCH (09:55)
[2019-04-29] MEDS: HEPARIN SUB-Q SCH ×2 (09:56→22:07)
[2019-04-29] MEDS: SERAX PO SCH ×2 (10:00→22:53)
[2019-04-29] MEDS ORDERED: MAGNESIUM SULFATE 1 GM in WATER FOR INJ (PF) 23 ML IV ONE (10:53)
[2019-04-29] MEDS: K-DUR PO SCH (11:40)
[2019-04-29] MEDS: KCL 10MEQ/100ML 10 MEQ/100 ML BAG IV SCH ×3 (11:40→14:16)
[2019-04-29] MEDS ORDERED: MAGNESIUM SULFATE 1 GM in WATER FOR INJ (PF) 50 ML IV ONE (12:00)
[2019-04-29] MEDS ORDERED: MAGNESIUM SULFATE 1 GM in NACL 0.9% 50 ML IV ONE (12:00)
[2019-04-29] MEDS: NACL 0.9% 1000 ML 1,000 ML IV SCH (14:16)
--- NOTE | 2019-04-29 15:29 | Progress Note ---
Assessment and Plan Acute gastroenteritis - placed on PPI, GI consulted, no EGD - advance diet as tolerated Hypokalemia, 2.8 this am - likely due to GI loss from N/V - monitor BMP, replete electrolytes as needed Dehydration due to nausea and vomiting - cont in fluid hepatic nodule with new diagnosis of hepatic cirrhosis - ordered repeat CT but was undiagnostic as she was moving too much during the scan - GI recommended outpt f/u Suspected drug overdose, counselled s/p fall - CT head negative - PT eval pending Brief History: 63-year-old white female with a history of hypertension, seizure disorder, transferred from a nearby psychiatric facility because of complaints of weakness nausea and vomiting. Patient was admitted to the psych facility because of suspected drug overdose, bipolar disorder with depression or anxiety. Radiological data: Head CT, no acute process Chest x-ray, no infiltrates Chest CTA, NO PE Abdomen pelvis CT: 1. 2 indeterminate hypodense liver lesions with probable mild cirrhosis of liver. Recommend CT abdomen with contrast with arterial and portal venous phase images to confirm presence or absence of hemangioma or focal fatty infiltration. The lesions do not have the appearance of lacerations since there is no perihepatic fluid or other adjacent rib fracture or traumatic injury. 2. Old L1 compression fracture Hospitalist Physical exam: GENERAL: elderly WF lying on bed appeared to be in no discomfort. HEENT: Normocephalic. Atraumatic. No conjunctival congestion or icterus. Patient has moist mucous membranes. NECK: Supple. Trachea midline. CHEST/LUNGS: Clear to auscultated bilaterally, breathing nonlabored. No wheezes crackles or rhonchi. HEART/CARDIOVASCULAR: Regular in rate and rhythm. S1 and S2 positive. ABDOMEN: Abdomen is soft, nontender. Patient has normal bowel sounds. SKIN: There is no rash. Warm and dry. NEURO: No focal motor deficit. Follows command. MUSCULOSKELETAL: No joint effusion or tenderness. EXTRIMITY: No edema, no cyanosis or clubbing. PSYCH: Cooperative. Subjective Date of service: 04/29/19 Interval history: Patient seen and examined N/V improved, tolerating diet better today K level 2.8 this am advance diet as tolerated Discussed with family at bedside Objective - Constitutional Vitals: Vital Signs - 12hr 04/29/19 04/29/19 05:41 11:55 Temperature 98.9 F Pulse Rate 103 H 85 Respiratory 16 18 Rate Blood Pressure 115/69 100/54 O2 Sat by Pulse 93 98 Oximetry - Labs CBC & Chem 7: 04/29/19 05:30 04/30/19 05:54 Labs: Abnormal lab results 04/29/19 04/29/19 Range/Units 05:30 05:30 RDW 17.9 H (13.2-15.2) % Potassium 2.9 L* (3.6-5.0) mmol/L
--- NOTE | 2019-04-29 17:52 | Gastroenterology Progress Note ---
Assessment and Plan 63-year-old white female with a history of hypertension, seizure disorder, transferred from a nearby psychiatric facility because of complaints of weakness nausea and vomiting. Patient was admitted to the psych facility because of suspected drug overdose, bipolar disorder with depression or anxiety. # Cirrhosis - new diagnosis. - likely 2/2 alcohol. - mild elevation in alk phos but otherwise normal AST/ALT. normal platelets and INR at 1 - CT with 2.2 cm hypodense lesion but indeterminate on noncontrast imaging. - Repeat CT attempted but nondiagnostic due to motion. - clinically improving with tolerating diet and abdominal pain resolved. - viral hepatitis panel negative. Rec: - PPI and antiemetics. - psych consult. - monitor for signs of withdrawal. - can follow up in outpatient GI clinic in 2 weeks for further work up for cirrhosis. avoid alcohol. - will sign off. - Patient Problems (1) Gastroenteritis Current Visit: Yes Status: Acute Subjective Date of service: 04/29/19 Interval history: Patient feels better today. No abdominal pain and tolerating diet. Objective - Constitutional Vitals: Temp Pulse Resp BP Pulse Ox 97.9 F 84 18 131/59 97 04/29/19 16:52 04/29/19 16:52 04/29/19 16:52 04/29/19 16:52 04/29/19 16:52 - EENT ENT: hearing intact, clear oral mucosa - Neck Neck: supple, normal ROM - Respiratory Respiratory effort: normal Respiratory: bilateral: CTA - Cardiovascular Rhythm: regular - Extremities Extremities: No edema, normal color - Gastrointestinal General gastrointestinal: Present: soft, non-tender, non-distended, normal bowel sounds - Integumentary Integumentary: Present: clear, warm, dry - Neurologic Neurological: alert and oriented x3 - Labs CBC & Chem 7: 04/29/19 05:30 04/29/19 05:30 Labs: Laboratory Results - last 24 hr 04/29/19 04/29/19 04/29/19 05:30 05:30 05:30 WBC 7.5 RBC 3.71 Hgb 11.9 D Hct 35.2 D MCV 95 MCH 32 MCHC 34 RDW 17.9 H Plt Count 274 PT 13.2 INR 1.03 Sodium Potassium Chloride Carbon Dioxide Anion Gap BUN Creatinine Estimated GFR BUN/Creatinine Ratio Glucose Calcium Magnesium Hepatitis A IgM Ab Non-reactive Hep Bs Antigen Non-reactive Hep B Core IgM Ab Non-reactive Hepatitis C Antibody Non-reactive 04/29/19 04/29/19 05:30 05:30 WBC RBC Hgb Hct MCV MCH MCHC RDW Plt Count PT INR Sodium 139 Potassium 2.9 L* Chloride 99.1 Carbon Dioxide 26 Anion Gap 17 BUN 8 Creatinine 0.7 Estimated GFR > 60 BUN/Creatinine Ratio 11 Glucose 100 Calcium 8.9 Magnesium 2.00 Hepatitis A IgM Ab Hep Bs Antigen Hep B Core IgM Ab Hepatitis C Antibody
[2019-04-29] MEDS ORDERED: IBUPROFEN PO PRN (21:42)
[2019-04-29] MEDS: REMERON PO SCH (22:02)
[2019-04-30 07:29] LABS: BUN/Creatinine Ratio 9; Blood Urea Nitrogen 7 mg/dL (7-17); Hemolysis Index 0
[2019-04-30] MEDS: VITAMIN B-1 PO SCH (10:10)
[2019-04-30] MEDS: COZAAR PO SCH (10:10)
[2019-04-30] MEDS: K-DUR PO SCH (10:10)
[2019-04-30] MEDS: NORVASC PO SCH (10:10)
[2019-04-30] MEDS: THERAGRAN-M Tab PO SCH (10:10)
[2019-04-30] MEDS: NON-FORMULARY PO SCH (10:11)
[2019-04-30] MEDS: LaMICtal PO SCH (10:11)
[2019-04-30] MEDS: ZOLOFT PO SCH (10:11)
[2019-04-30] MEDS: FOLVITE PO SCH (10:15)
[2019-04-30] MEDS: HEPARIN SUB-Q SCH (10:19)
[2019-04-30] MEDS: SERAX PO SCH (11:24)
[2019-04-30 12:18] VITALS: BP 123/67
--- NOTE | 2019-04-30 14:05 | Discharge Summary ---
Providers - Providers Date of Admission: 04/26/19 22:30 Date of discharge: 04/30/19 Attending physician: AKIN GR 04/27/19 06:00 Consult to Physician [CONS] Routine Comment: Consulting Provider: NELSY TOWNSEND Physician Instructions: Reason For Exam: CT FINDINGS OF LIVER CIRROSIS 04/27/19 06:23 Consult to Wound/ET Nurse [CONS] Routine Reason For Exam: wound eval 04/28/19 11:01 Consult to Mental Health [CONS] Routine Reason For Exam: possible drug overdose Place consult to:: mental health Notified:: KWAKU Phone number called:: [phone] Was contact made?: Yes If yes, spoke with:: KWAKU Primary care physician: [employer] Hospitalization Condition: Stable Hospital course: 63-year-old white female with a history of hypertension, seizure disorder, transferred from a nearby psychiatric facility because of complaints of weakness nausea and vomiting. Patient was admitted to the psych facility because of suspected drug overdose, bipolar disorder with depression or anxiety. Radiological data: Head CT, no acute process Chest x-ray, no infiltrates Chest CTA, NO PE Abdomen pelvis CT: 1. 2 indeterminate hypodense liver lesions with probable mild cirrhosis of liver. Recommend CT abdomen with contrast with arterial and portal venous phase images to confirm presence or absence of hemangioma or focal fatty infiltration. The lesions do not have the appearance of lacerations since there is no perihepatic fluid or other adjacent rib fracture or traumatic injury. 2. Old L1 compression fracture Discharge diagnosis and Mx: Acute gastroenteritis - placed on PPI, GI consulted, no EGD recommended - slowly advanced diet and tolerated well Hypokalemia, dropped upto 2.8 - likely due to GI loss from N/V - monitored BMP, repleted electrolytes as needed Dehydration due to nausea and vomiting - cont in fluid hepatic nodule with new diagnosis of hepatic cirrhosis - ordered repeat CT but was undiagnostic as she was moving too much during the scan - GI recommended outpt f/u Suspected drug overdose, counselled s/p fall - CT head negative - PT eval consulted Hospitalist Physical exam: GENERAL: elderly WF lying on bed appeared to be in no discomfort. HEENT: Normocephalic. Atraumatic. No conjunctival congestion or icterus. Patient has moist mucous membranes. NECK: Supple. Trachea midline. CHEST/LUNGS: Clear to auscultated bilaterally, breathing nonlabored. No wheezes crackles or rhonchi. HEART/CARDIOVASCULAR: Regular in rate and rhythm. S1 and S2 positive. ABDOMEN: Abdomen is soft, nontender. Patient has normal bowel sounds. SKIN: There is no rash. Warm and dry. NEURO: No focal motor deficit. Follows command. MUSCULOSKELETAL: No joint effusion or tenderness. EXTRIMITY: No edema, no cyanosis or clubbing. PSYCH: Cooperative. Disposition: [id number]/[place]-06 HOME [facility] Time spent for discharge: 34 minutes Core Measure Documentation - Palliative Care Palliative Care/ Comfort Measures: Not Applicable - Core Measures Any of the following diagnoses?: none Exam - Constitutional Vitals: Temp Pulse Resp BP Pulse Ox 98.2 F 87 20 123/67 97 04/30/19 12:16 04/30/19 12:16 04/30/19 12:16 04/30/19 12:16 04/30/19 12:16 Plan Activity: advance as tolerated Weight Bearing Status: Weight Bear as Tolerated Diet: low fat, advance as tolerated Additional Instructions: f/u with outpt psych in one week Follow up with: DESTINEY CR MD [Referring] - 3-5 Days SHANTA MEDINA MD [Staff Physician] - 7 Days Prescriptions: Potassium Chloride [K-Dur] 40 meq PO QDAY #3 tablet
--- NOTE | 2019-04-30 15:13 | Consultation ---
History of Present Illness - Reason for Consult Consult date: 04/30/19 Reason for consult: Mental Health Evaluation Requesting physician: KAIN GR - Chief Complaint Chief complaint: "I only took 2 pills" - History of Present Psychiatric Illness 63 y.o. white female who presented to the ER per a mental health facility for N/V. Psychiatry was consulted to see the patient for possible overdose. Today the patient was calm and cooperative during the assessment. She stated that she took 2 pills that may have cause her to be drowsy, so her took her to a hospital. She stated that the staff thought she was trying to kill herself, so she was transferred her to a mental health facility. She is adamant that she wasn't trying to kill herself. She denies any previous suicide attempts when a sked. She stated that she has a hx of anxiety. She stated that she would like a referral to see a psychiatrist in her local area. She denies SI/HI's, AVH's, and being depressed. She denies recreational drug use and alcohol consumption (etoh). Medications and Allergies Allergies Allergy/AdvReac Type Severity Reaction Status Date / Time ketorolac [From Toradol] AdvReac Unknown Verified 04/26/19 22:42 morphine AdvReac Unknown Verified 04/26/19 22:42 Home Medications Medication Instructions Recorded Confirmed Last Taken Type Folic Acid [Folvite] 1 mg PO QDAY 04/26/19 04/26/19 Unknown History Losartan [Cozaar] 50 mg PO QDAY 04/26/19 04/26/19 Unknown History Mirtazapine [Remeron 15mg TAB] 15 mg PO QHS 04/26/19 04/26/19 Unknown History Multivit-Min/Iron/Folic Acid/K 1 each PO DAILY 04/26/19 04/26/19 Unknown History [Adults Multivitamin Tablet] QUEtiapine [SEROquel] 100 mg PO QHS 04/26/19 04/26/19 Unknown History Sertraline [Zoloft] 25 mg PO QDAY 04/26/19 04/26/19 Unknown History Thiamine [Vitamin B-1] 100 mg PO QDAY 04/26/19 04/26/19 Unknown History amLODIPine [Norvasc] 10 mg PO DAILY 04/26/19 04/26/19 Unknown History lamoTRIgine [LaMICtal] 25 mg PO QDAY 04/26/19 04/26/19 Unknown History Potassium Chloride [K-Dur] 40 meq PO QDAY #3 tablet 04/30/19 Unknown Rx Active Meds: Active Medications Amlodipine Besylate (Norvasc) 10 mg PO DAILY [facility] Last Admin: 04/30/19 10:10 Dose: 10 mg Documented by: Folic Acid (Folvite) 1 mg PO QDAY [facility] Last Admin: 04/30/19 10:15 Dose: 1 mg Documented by: Haloperidol Lactate (Haldol) 5 mg IM Q6H PRN PRN Reason: Agitation Last Admin: 04/29/19 12:12 Dose: 5 mg Documented by: Heparin Sodium (Porcine) (Heparin) 5,000 unit SUB-Q Q12HR [facility] Last Admin: 04/30/19 10:19 Dose: 5,000 unit Documented by: Sodium Chloride (Nacl 0.9% 1000 Ml) 1,000 mls @ 125 mls/hr IV DIRECT [facility] Last Admin: 04/29/19 14:16 Dose: 125 mls/hr Documented by: Ibuprofen (Ibuprofen) 600 mg PO Q6H PRN PRN Reason: Pain, Mild (1-3) Last Admin: 04/29/19 22:03 Dose: 600 mg Documented by: Lamotrigine (Lamictal) 25 mg PO QDAY [facility] Last Admin: 04/30/19 10:11 Dose: 25 mg Documented by: Losartan Potassium (Cozaar) 50 mg PO QDAY [facility] Last Admin: 04/30/19 10:10 Dose: 50 mg Documented by: Mirtazapine (Remeron) 15 mg PO QHS [facility] Last Admin: 04/29/19 22:02 Dose: 15 mg Documented by: Miscellaneous Medication (Non-Formulary) 1 each PO DAILY [facility] Last Admin: 04/30/19 10:11 Dose: 1 each Documented by: Multivitamins/Minerals (Theragran-M Tab) 1 each PO QDAY [facility] Last Admin: 04/30/19 10:10 Dose: 1 each Documented by: Ondansetron HCl (Zofran) 4 mg IV Q8H PRN PRN Reason: Nausea And Vomiting Last Admin: 04/27/19 23:06 Dose: 4 mg Documented by: Potassium Chloride (K-Dur) 40 meq PO QDAY [facility] Last Admin: 04/30/19 10:10 Dose: 40 meq Documented by: Quetiapine Fumarate (Seroquel) 100 mg PO QHS [facility] Last Admin: 04/29/19 22:03 Dose: 100 mg Documented by: Sertraline HCl (Zoloft) 25 mg PO QDAY [facility] Last Admin: 04/30/19 10:11 Dose: 25 mg Documented by: Thiamine HCl (Vitamin B-1) 100 mg PO QDAY [facility] Last Admin: 04/30/19 10:10 Dose: 100 mg Documented by: Past psychiatric history - Past Medical History Past Medical History: hypertension, seizures Past Surgical History: No surgical history - past Psychiatric treatment and history psychiatric treatment history: Denies a psy hx and fam psy hx. - Social History Social history: lives with family Mental Status Exam - Vital signs Last Vital Signs Temp 98.2 F 04/30/19 12:16 Pulse 87 04/30/19 12:16 Resp 20 04/30/19 12:16 BP 123/67 04/30/19 12:16 Pulse Ox 97 04/30/19 12:16 - Exam Narrative exam: MSE: Appearance: calm, cooperative Behavior: regular eye contact Speech: somewhat rapid speech Mood: "okay" Affect: congruent to mood Thought Process: circumstantial Thought Content: denies Si/HI's and AVH's Motor Activity: sitting up in bed Cognition: A/O x 3 Insight: fair Judgment: appropriate Results Result Diagrams: 04/29/19 05:30 04/30/19 05:54 Abnormal lab results 04/30/19 Range/Units 05:54 Potassium 3.4 L (3.6-5.0) mmol/L Glucose 126 H (65-100) mg/dL All other labs normal. Assessment and Plan Assessment and plan: Impression: Hx of Anxiety per the patient. Today the patient was calm and coope rative during the assessment. Recommendation/Plan: The patient's 1013 19 Apr 2019. The patient does not meet criteria for a 1013 at this time. Dispo: The patient was given outpatient psy services referral for her local area. Staffed with Dr Russell Barajas.
== END 2019-04-30 15:20 | disposition home health service (06) ==
LOC: ED 13:07 → 3A 22:30
PROVIDERS: ADMIT Internal Medicine; ATTEND Internal Medicine
DX: K52.9 Noninfective gastroenteritis and colitis, unspecified (principal); E86.0 Dehydration; E87.6 Hypokalemia; Z87.891 Personal history of nicotine dependence
CPT/HCPCS: 36415; 70450; 71045; 71275; 74170; 74176; 80048; 80053; 80074; 80307; 81001; 82140; 82550; 83690; 83735; 84443; 85025; 85027; 85610; 85730; 86705; 87086; 90471; 90715; 93005; 93010; 96361; 96365; 96366; 96367; 96368; 96372; 96375; 96376; 99284; 99406; G0378; J1630; J1644; J2060; J2405; J2765; J3411; J3475; J3480; J7030; Q9967; 80320; G0480